=== PATIENT | female | born 1990 | race Caucasian/White ===

== ENCOUNTER 2017-09-01 19:53 | Emergency (ER) | payer SELFPAY ==
[~2017-09-01] VITALS: Ht 175.3 cm; Wt 90.7 kg
--- NOTE | 2017-09-01 20:14 | ED GI/GU/ABDOMINAL COMPLAINT ---
History of Present Illness General Chief Complaint: Female Urogenital Problems Stated Complaint: PELVIC PAIN Source: patient, family Exam Limitations: no limitations Vital Signs & Intake/Output Vital Signs & Intake/Output Vital Signs Date Time Temp Pulse Resp B/P B/P Pulse O2 O2 Flow FiO2 Mean Ox Delivery Rate 09/01 2250 98.2 88 16 122/81 99 Room Air 09/01 2010 Room Air 09/01 195 96.4 90 18 119/80 96 Room Air ED Intake and Output 09/02 0000 09/01 1200 Intake Total 0 Output Total Balance 0 Intake, Oral 0 Patient 200 lb Weight Weight Reported by Patient Measurement Method Allergies Coded Allergies: No Known Allergies (09/01/17) Reconcile Medications Hydrocodone/Acetaminophen (Vicodin 5-300 MG Tablet) 5 MG-300 MG TABLET 1 TAB PO Q6P PRN PAIN Triage Note: PT FROM HOME C/O OF LOWER PELVIC PAIN WITH A SUDDEN ONSET X1 HR PRIOR. PT STATES THAT DURING INTERCOURSE SHE BEGAN TO HAVE A CRAMPING PRESSURE THAT INTENSIFIED PER PT. PT IS AMBULATORY AND STATES THE PAIN HAS SUBSIDED FROM A 10 TO A 6/10 AFTER 800MG OF MOTRIN 1 HR PRIOR TO ARRIVAL. PT STATES SHE CALLED HER OBGYN AND PT WOULD LIKE TO BE RULED OUT FOR OVARIAN TORSION. VSS. Triage Nurses Notes Reviewed? yes ? N Is pt currently ? No HPI: Shortly after having intercourse this evening patient developed left adnexal pain. Patient has a known cyst on the left side. The pain was a sudden onset. Pain was 10 out of 10 however his Coumadin on a 6 out of 10 after taking 800 mg Motrin. Patient denies any nausea or vomiting. The pain radiates into her left lower back. Pain is constant. The pain was sharp and stabbing but is now aching. There are no aggravating factors. Past History Travel History Traveled to [place] past 21 day No Medical History Any Pertinent Medical History? see below for history Neurological: NONE EENT: NONE Cardiovascular: NONE Respiratory: NONE Gastrointestinal: NONE Hepatic: NONE Renal: NONE Musculoskeletal: NONE Psychiatric: NONE Endocrine: NONE PANTRY ATTENDANT/Reproductive: OVARIAN CYST Surgical History Surgical History: non-contributory Psychosocial History What is your primary language Romanian Tobacco Use: Current Daily Use Daily Tobacco Use Amount/Type: => 5 Cigarettes daily ETOH Use: occasional use Illicit Drug Use: denies illicit drug use Family History Hx Contributory? No Review of Systems Review of Systems Constitutional: Reports: no symptoms. EENTM: Reports: no symptoms. GI: Reports: see HPI, abdominal pain. Genitourinary: Reports: no symptoms. Neurological/Psychological: Reports: no symptoms. Hematologic/Endocrine: Reports: no symptoms. Immunologic/Allergic: Reports: no symptoms. Physical Exam Physical Exam General Appearance: well developed/nourished, alert, awake, anxious, moderate distress Head: atraumatic Neck: normal inspection, supple Respiratory: normal breath sounds, chest non-tender, no respiratory distress, lungs clear Cardiovascular: regular rate/rhythm, normal peripheral pulses Gastrointestinal: normal bowel sounds, soft, no organomegaly, tenderness (LLQ) Extremities: normal range of motion Neurologic/Psych: no motor/sensory deficits, awake, alert, oriented x 3, normal gait, normal mood/affect Core Measures ACS in differential dx? No Sepsis Present: No Sepsis Focused Exam Completed? No Progress Differential Diagnosis: ectopic , intrauterine , ovarian cyst, ovarian torsion, threatened AB, UTI/pyelo Plan of Care: Orders Procedure Date/time Status URINE 09/01 2001 Complete URINALYSIS 09/01 2001 Complete Laboratory Tests 09/01/172024: Urine Color YEL, Urine Clarity CLEAR, Urine pH 6.5, Ur Specific [place] 1.025, Urine Protein NEG, Urine Ketones NEG, Urine Nitrite NEG, Urine Bilirubin NEG, Urine Urobilinogen 0.2, Ur Leukocyte Esterase NEG, Ur Microscopic EXAM NOT REQUIRED, Urine Hemoglobin NEG, Urine Glucose NEG, Urine Test NEGATIVE Diagnostic Imaging: Viewed by Me: Ultrasound. Discussed w/RAD: Ultrasound. Radiology Impression: PATIENT: ENRIQUETA KIM PRESENT AGE: 27 PATIENT ACCOUNT NO: [id number] : 92 LOCATION: [facility] ORDERING PHYSICIAN: Sawyer Mccarty MD SERVICE DATE: 09/01/17 EXAM TYPE: US - US-TRANSVAGINAL EXAMINATION: ULTRASOUND OF THE PELVIS CLINICAL INFORMATION: Evaluation for ovarian torsion, left-sided pelvic pain. LMP was on 08/16/2017, 16 days ago. COMPARISON: None. TECHNIQUE: Transabdominal and transvaginal pelvic ultrasound. A transvaginal study was performed in addition to the transabdominal study. The exam is somehow limited due to patient's intolerance. FINDINGS: The uterus is normal in size and appearance, measuring 8.5 x 3.9 x 4.5 cm longitudinally, anteroposteriorly and transversely. The endometrial stripe thickness is normal, measuring 1.0 cm in thickness. No focal myometrial mass is seen. The cervical length is normal measuring 2.9 cm. The ovaries bilaterally are visualized, with the right ovary measuring 4.7 x 3.0 x 3.2 cm and the left ovary measuring 2.8 x 1.7 x 2.3 cm. There is a 2.6 x 2.4 x 2.3 cm complex right ovarian cyst, likely a hemorrhagic cyst. The vascular flow to both ovaries is within normal limits based on color Doppler images. The left ovary contains multiple follicles. No adnexal mass seen. There is a small amount of pelvic free fluid with internal debris, could be hemorrhagic in nature. IMPRESSION: Right ovarian hemorrhagic cyst with a small amount of heterogeneous/hemorrhagic pelvic free fluid.. DICTATED BY: Bartolo Yoon MD DATE/TIME DICTATED:09/01/172216 TOP FRAME FITTER:LATISHA DATE/TIME TRANSCRIBED:09/01/172216 CONFIDENTIAL, DO NOT COPY WITHOUT APPROPRIATE AUTHORIZATION. <Electronically signed in Other Vendor System> SIGNED BY: Bartolo Yoon MD 09/01/172229 Initial ED EKG: none Departure Departure Disposition: HOME OR SELF CARE Condition: Stable Clinical Impression Primary Impression: Ovarian cyst Referrals: Patient Has No Primary Care Dr (PCP/Family) Additional Instructions: FOLLOW UPWITH YOUR GYNOCOLOGIST TAKE VICODIN NEEDED FOR PAIN REUTNR IF SYMPTOMS WORSEN OR FOR ANY CONCERNS Departure Forms: Customer Survey General Discharge Information Prescriptions: Current Visit Scripts Hydrocodone/Acetaminophen (Vicodin 5-300 MG Tablet) 1 TAB PO Q6P PRN PAIN #16 TAB
--- NOTE | 2017-09-01 22:30 | ULTRASOUND REPORT ---
EXAMINATION: ULTRASOUND OF THE PELVIS CLINICAL INFORMATION: Evaluation for ovarian torsion, left-sided pelvic pain. LMP was on 08/16/2017, 16 days ago. COMPARISON: None. TECHNIQUE: Transabdominal and transvaginal pelvic ultrasound. A transvaginal study was performed in addition to the transabdominal study. The exam is somehow limited due to patient's intolerance. FINDINGS: The uterus is normal in size and appearance, measuring 8.5 x 3.9 x 4.5 cm longitudinally, anteroposteriorly and transversely. The endometrial stripe thickness is normal, measuring 1.0 cm in thickness. No focal myometrial mass is seen. The cervical length is normal measuring 2.9 cm. The ovaries bilaterally are visualized, with the right ovary measuring 4.7 x 3.0 x 3.2 cm and the left ovary measuring 2.8 x 1.7 x 2.3 cm. There is a 2.6 x 2.4 x 2.3 cm complex right ovarian cyst, likely a hemorrhagic cyst. The vascular flow to both ovaries is within normal limits based on color Doppler images. The left ovary contains multiple follicles. No adnexal mass seen. There is a small amount of pelvic free fluid with internal debris, could be hemorrhagic in nature. IMPRESSION: Right ovarian hemorrhagic cyst with a small amount of heterogeneous/hemorrhagic pelvic free fluid..
[2017-09-01] MEDS ORDERED: VICODIN 5-3001 EACH PO (22:42)
[2017-09-01 22:50] VITALS: BP 122/81
== END 2017-09-01 23:13 ==
LOC: ERH 19:53
DX: N83.201 Unspecified ovarian cyst, right side (principal)
CPT/HCPCS: 81003; 81025